=== PATIENT | female | born 1970 | race Caucasian/White ===

== ENCOUNTER → 2016-11-07 | Outpatient (CLI) | payer OTHER | LOC: MAMO 09:00 | DX: Z12.31 Encounter for screening mammogram for malignant neoplasm of breast (principal) | CPT/HCPCS: G0202 ==

== ENCOUNTER 2020-05-02 14:30 | Emergency (ER) | payer OTHER ==
[2020-05-02] MEDS ORDERED: BACTRIM 400-801 EACH PO (18:40)
== END 2020-05-02 18:45 | disposition home or self-care (01) ==
LOC: ER1 14:30
DX: L02.512 Cutaneous abscess of left hand (principal); I10 Essential (primary) hypertension
CPT/HCPCS: 26010; 87070; 87077; 87186; 87205; 99283